=== PATIENT | female | born 1990 | race Caucasian/White ===

== ENCOUNTER → 2019-11-15 16:24 | Outpatient (BNVA) | payer MEDICARE, MEDICAID, SELFPAY | PROVIDERS: Family Provider Nurse Practitioner; PCP Nurse Practitioner; Visit Provider Nurse Practitioner | DX: F41.9 Anxiety disorder, unspecified (principal); F32.9 Major depressive disorder, single episode, unspecified | CPT/HCPCS: 80053; 84443 ==

== ENCOUNTER → 2019-12-23 11:33 | Outpatient (BNVA) | payer MEDICAID, SELFPAY | PROVIDERS: Family Provider Nurse Practitioner; PCP Nurse Practitioner; Visit Provider Nurse Practitioner | DX: F41.9 Anxiety disorder, unspecified (principal); F32.9 Major depressive disorder, single episode, unspecified; E87.6 Hypokalemia | CPT/HCPCS: 80048 ==

== ENCOUNTER → 2020-04-10 15:28 | Outpatient (BNVA) | payer MEDICAID, SELFPAY | PROVIDERS: Family Provider Nurse Practitioner; PCP Nurse Practitioner; Visit Provider Nurse Practitioner | DX: F32.9 Major depressive disorder, single episode, unspecified (principal); F41.9 Anxiety disorder, unspecified; E55.9 Vitamin D deficiency, unspecified; J30.1 Allergic rhinitis due to pollen | CPT/HCPCS: 80053; 82306; 82607; 84443; 85025 ==

== ENCOUNTER → 2020-04-13 16:21 | Outpatient (BNVA) | payer MEDICAID, SELFPAY | PROVIDERS: Family Provider Nurse Practitioner; PCP Nurse Practitioner; Visit Provider Family Medicine | DX: R60.9 Edema, unspecified (principal) | CPT/HCPCS: 71046 ==

== ENCOUNTER → 2020-06-28 13:30 | Outpatient (BNVA) | payer MEDICAID, SELFPAY | PROVIDERS: Family Provider Nurse Practitioner; PCP Nurse Practitioner; Visit Provider Nurse Practitioner | DX: M54.5 Low back pain (principal) | CPT/HCPCS: 72100 ==

== ENCOUNTER 2020-07-19 06:00 | Outpatient (RCR) | payer MEDICAID, SELFPAY | END 2020-08-02 23:59 | disposition home or self-care (01) | LOC: TPT 06:00 | PROVIDERS: PCP Nurse Practitioner; Referring Provider Nurse Practitioner; Visit Provider Nurse Practitioner | DX: M54.42 Lumbago with sciatica, left side (principal); G89.29 Other chronic pain | CPT/HCPCS: 97161 ==

== ENCOUNTER → 2020-10-06 10:51 | Outpatient (BNVA) | payer MEDICAID, SELFPAY | PROVIDERS: PCP Nurse Practitioner; Visit Provider Nurse Practitioner | DX: Z20.828 Contact with and (suspected) exposure to other viral communicable diseases (principal) | CPT/HCPCS: 87635 ==

== ENCOUNTER → 2021-08-23 13:29 | Outpatient (BNVA) | payer MEDICAID, SELFPAY | PROVIDERS: PCP Nurse Practitioner; Visit Provider Nurse Practitioner Family | DX: Z11.52 Encounter for screening for COVID-19 (principal); Z20.822 Contact with and (suspected) exposure to COVID-19 | CPT/HCPCS: 87635 ==

== ENCOUNTER → 2021-09-11 16:01 | Outpatient (BNVA) | payer MEDICAID, SELFPAY | PROVIDERS: PCP Nurse Practitioner; Visit Provider Nurse Practitioner | DX: Z11.3 Encounter for screening for infections with a predominantly sexual mode of transmission (principal) | CPT/HCPCS: 81000; 87491; 87591 ==

== ENCOUNTER → 2022-07-18 13:01 | Outpatient (BNVA) | payer MEDICAID, SELFPAY | PROVIDERS: PCP Nurse Practitioner; Visit Provider Nurse Practitioner Family | DX: F41.9 Anxiety disorder, unspecified (principal); F32.9 Major depressive disorder, single episode, unspecified; E55.9 Vitamin D deficiency, unspecified; K21.9 Gastro-esophageal reflux disease without esophagitis; E87.6 Hypokalemia; R53.83 Other fatigue; H60.92 Unspecified otitis externa, left ear; H91.91 Unspecified hearing loss, right ear | CPT/HCPCS: 80053; 80061; 82306; 82607; 82746; 83550; 84443 ==

== ENCOUNTER 2022-08-16 09:44 | Emergency (ER) | payer MEDICAID, SELFPAY ==
[2022-08-16] VITALS (7 sets, daily range): BP systolic 119–150; BP diastolic 69–95; PULSE 75–92; RESP 14–18; TEMP 37.2; O2SAT 98–100; BMI 38.2
--- NOTE | 2022-08-16 10:21 | ED_ITS ---
Documented by User: Trina Owens PA-C 08/16/22 13:41 HPI - Nausea/Vomiting/Diarrhea General: Chief complaint: Nausea/Vomiting/Diarrhea Stated complaint: sent by austin brown Time Seen by Provider: 08/16/22 10:13 Source: patient Mode of arrival: ambulatory Limitations: no limitations History of Present Illness: 31-year-old female presents to the ER today for nausea and vomiting x24 hours. Patient reports has been unable to eat or drink in the last 24 hours and has also had watery diarrhea. Patient went to her PCP who was concerned with dehydration and sent her to the ER. Patient also complains of epigastric and left upper quadrant abdominal pain for the last 48 hours. Patient denies any recent contacts with similar symptoms. Denies any recent travel. Patient reports a fever this morning that was subjective. Patient reports after taking Tylenol she broke out in a diffuse sweat. Review of Systems General: Reports: 10 or more systems reviewed and unremarkable except in HPI and below PFSH ED PFSH: Medical History Allergic rhinitis due to pollen Anxiety and depression Deficiency of potassium Endometriosis Mild intermittent asthma, uncomplicated Surgical History History of cholecystectomy 2014 History of laparoscopy 2012,2010 History of tonsillectomy at age 6 Family History Grandmother Diabetes Hypertension Grandfather Heart disease Hypertension Mother Thyroid condition Social History Smoking and tobacco status: never smoked Second hand smoke exposure: Yes Smoking risk assessment/counseling performed?: No Alcohol intake: unknown Desire information about alcohol rehabilitation?: No Counseling given: No Desire information about substance/drug rehabilitation?: No Counseling given: No Caregiver/support person: No Lives independently: Yes Household members: children Marital status: Single Number of children: 2 service: No Current occupational status: unemployed Pets and animals: Yes History of recent travel: No Current gender identity: Female Female Reproductive History: Date of last menstrual period: 08/22/21 Physical Exam Const: COMMON NORMALS: average body habitus, patient oriented x3, no limitations, healthy appearing and alert HENMT: COMMON NORMALS: normocephalic, atraumatic, external ears normal, TM's normal bilaterally and Normal nasal mucous membranes and turbinates present; oral mucous membranes not moist (dry membranes) HEAD & SCALP: normocephalic and atraumatic NOSE: Normal nasal mucous membranes and turbinates present EXTERNAL EAR: Yes external ears normal TYMPANIC MEMBRANE: TM's normal bilaterally Neck/C-Spine: COMMON NORMALS: full ROM and no lymphadenopathy Resp: COMMON NORMALS: normal respiratory effort, No retractions and clear to auscultation bilaterally AUSCULTATION: clear to auscultation bilaterally Cardio: COMMON NORMALS: regular rate, regular rhythm and No murmurs present (Cardio) RATE: regular rate RHYTHM: regular rhythm GI: COMMON NORMALS: Soft to palpation AUSCULTATION: Yes Hyperactive bowel sounds present PALPATION: Yes Soft to palpation and Yes Tenderness to palpation present (GI) Details: LLQ and LUQ : COMMON NORMALS: Yes no CVA tenderness BLADDER/KIDNEY EXAM: Yes no CVA tenderness Back/Pelvis: COMMON NORMALS: no CVA tenderness Extremity: COMMON NORMALS: normal to inspection and full ROM Neuro: COMMON NORMALS: patient oriented x3 SENSORIUM/ORIENTATION: Yes alert Psych: COMMON NORMALS: mental status grossly normal, Normal thought process present and cooperative THOUGHT PROCESS: Normal thought process present Skin: COMMON NORMALS: no rashes or lesions noted and no wounds GENERAL SKIN EXAM: no rashes or lesions noted Course ED course: Patient presents from her PCPs office for dehydration. Patient has had 24 to 48 hours of vomiting and diarrhea. Denies any sick contacts. We will start with lab work. If there is anything abnormal will do abdominal CT. Patient will also be given a bolus of fluids. Reevaluation(s): Reevaluation #1: Patient was noted to have low potassium. This is expected given her symptoms. We will do potassium and fluids in the ER. Time: 12:00 Vital Signs: Vital signs: Vital Signs Temperature 98.9 F 08/16/22 09:50 Pulse Rate 79 08/16/22 14:58 Respiratory Rate 14 08/16/22 14:58 Blood Pressure 150/82 08/16/22 14:58 Pulse Oximetry 100 08/16/22 14:58 Oxygen Delivery Me thod 08/16/22 09:50 MDM - Nausea/Vomiting/Diarrhea Medical Decision Making Patient had a very minimally elevated white count and also low potassium. This was to be expected given symptoms. Patient was given a liter and a half of fluid in the ER. Patient also given 20 meq of potassium. Patient given Zofran twice for nausea. Patient reports symptoms have improved some. We did go ahead and CT patient given the low potassium and continued nausea/abdominal pain. CT indicates probable colitis. Patient reports she has had this in the past. We will send patient home with Zofran and anti-inflammatories. Recommended patient push fluids. Recommend follow-up with PCP next week. Return to the ER with any new or worsening symptoms. Patient verbalized understanding and was in agreement with the treatment plan. Lab Data : 08/16/22 10:15 08/16/22 10:15 Radiology Impressions Abdomen/Pelvis CT 08/16/22 10:55 IMPRESSION: 1. Moderate near diffuse colitis. No obstruction. No abscess or free air. 2. Normal appendix. 3. No renal obstruction. 4. Prior cholecystectomy. Laboratory Results WBC 10.2 10^3/uL (4.0-10.0) H 08/16/22 10:15 RBC 5.03 10^6/uL (4.1-5.3) 08/16/22 10:15 Hgb 14.6 g/dL (11.5-15.3) 08/16/22 10:15 Hct 42.9 % (37.0-47.0) 08/16/22 10:15 MCV 85.3 fl (81-99) 08/16/22 10:15 MCH 29.0 pg (28.0-34.0) 08/16/22 10:15 MCHC 34.0 g/dL (30.0-36.0) 08/16/22 10:15 RDW 13.0 % (12.1-15.1) 08/16/22 10:15 Plt Count 276 10^3/cmm (130-400) 08/16/22 10:15 MPV 10.5 fL (7.4-10.4) H 08/16/22 10:15 Neut % (Auto) 79.6 % 08/16/22 10:15 Lymph % (Auto) 12.1 % 08/16/22 10:15 [place] % (Auto) 7.2 % 08/16/22 10:15 Eos % (Auto) 0.6 % 08/16/22 10:15 Baso % (Auto) 0.2 % 08/16/22 10:15 Neut # (Auto) 8.11 10^3/uL (1.8-7.7) H 08/16/22 10:15 Lymph # (Auto) 1.2 10^3/uL (0.8-4.8) 08/16/22 10:15 [place] # (Auto) 0.7 10^3/uL (0.2-0.9) 08/16/22 10:15 Eos # (Auto) 0.1 10^3/uL (0.0-0.8) 08/16/22 10:15 Baso # (Auto) 0.0 10^3/uL (0.0-0.1) 08/16/22 10:15 Nucleated RBC % (auto) 0 % 08/16/22 10:15 Nucleated RBCs # 0.0 /100WBC 08/16/22 10:15 Sodium 138 mmol/L (136-145) 08/16/22 10:15 Potassium 2.9 mmol/L (3.5-5.1) L 08/16/22 10:15 Chloride 100 mmol/L (98-107) 08/16/22 10:15 Carbon Dioxide 23 mmol/L (22-29) 08/16/22 10:15 Anion Gap 17.9 (5-19) 08/16/22 10:15 BUN 6 mg/dL (6-20) 08/16/22 10:15 Creatinine 0.7 mg/dL (0.5-0.9) 08/16/22 10:15 GFR Calculation 97.6 mL/min (90-130) 08/16/22 10:15 Glucose 94 mg/dL (65-115) 08/16/22 10:15 Calculated Osmolality 283 mOsm/kg (285-295) L 08/16/22 10:15 Calcium 9.4 mg/dL (8.5-10.5) 08/16/22 10:15 Total Bilirubin 0.5 mg/dL (0.15-1.2) 08/16/22 10:15 AST 10 U/L (0-32) 08/16/22 10:15 ALT 8 U/L (0-33) 08/16/22 10:15 Alkaline Phosphatase 111 U/L (35-105) H 08/16/22 10:15 Total Protein 7.8 g/dL (6.6-8.7) 08/16/22 10:15 Albumin 4.4 g/dL (3.5-5.2) 08/16/22 10:15 Globulin 3.4 g/dL (1.3-4.6) 08/16/22 10:15 Lipase 16 U/L (13-60) 08/16/22 10:15 SARS-CoV-2 Ag (Rapid) negative (Negative) 08/16/22 10:51 Critical Care Time Critical Care Time: Critical Care Time: No Discharge Plan Discharge Patient Disposition: Home Clinical Impression: Colitis, Acute hypokalemia Condition: Stable Prescriptions: New ondansetron HCl 4 mg tablet 4 mg PO Q8H PRN (Reason: nausea and vomiting) 4 Days Qty: 12 0RF No Action Women's Daily Formula 27-0.4 mg tablet 1 tab PO DAILY albuterol sulfate 2.5 mg /3 mL (0.083 %) solution for nebulization 2.5 mg inhalation Q4H PRN (Reason: shortness of breath or wheezing) Qty: 180 6RF cetirizine [Zyrtec] 10 mg tablet 10 mg PO DAILY 90 Days Qty: 90 1RF prochlorperazine 25 mg suppository 25 mg ME BID PRN (Reason: nausea and vomiting) Qty: 12 0RF cholecalciferol (vitamin D3) 50 mcg (2,000 unit) capsule 50 mcg PO DAILY 90 Days Qty: 90 1RF folic acid 1 mg tablet 1 mg PO DAILY 90 Days Qty: 90 1RF Symbicort 160-4.5 mcg/actuation HFA aerosol inhaler 2 puff inhalation Q12H PRN (Reason: Shortness Of Breath Or Wheezing) Discharge Orders: Discharge ED (Routine); Ordered 08/16/22 Ordered By: Trina Owens Discharge Diet: Advance as tolerated Discharge Activity: Resume usual activity Patient Instructions: Opioid Safety, Pain Management Activity Restrictions/Additional Instructions: Use Zofran for nausea. Push fluids. Increase potassium in diet. Take anti-inflammatories such as ibuprofen or naproxen. Follow-up with PCP in 5 to 7 days if no improvement. Return to the ER with any new or worsening symptoms. Coding Level of Care Code ED Clinical Psychologist [facility] Fwd Exam Comprehensive Documented by User: Héctor Clark DO 08/19/22 17:28 HPI - Nausea/Vomiting/Diarrhea General: Chief complaint: Nausea/Vomiting/Diarrhea Stated complaint: sent by , dehydration Time Seen by Provider: 08/16/22 10:13 PFSH ED PFSH: Medical History Allergic rhinitis due to pollen Anxiety and depression Deficiency of potassium Endometriosis Mild intermittent asthma, uncomplicated Surgical History History of cholecystectomy 2014 History of laparoscopy 2012,2010 History of tonsillectomy at age 6 Family History Grandmother Diabetes Hypertension Grandfather Heart disease Hypertension Mother Thyroid condition Social History Smoking and tobacco status: never smoked Second hand smoke exposure: Yes Smoking risk assessment/counseling performed?: No Alcohol intake: unknown Desire information about alcohol rehabilitation?: No Counseling given: No Desire information about substance/drug rehabilitation?: No Counseling given: No Caregiver/support person: No Lives independently: Yes Household members: children Marital status: Single Number of children: 2 service: No Current occupational status: unemployed Pets and animals: Yes History of recent travel: No Current gender identity: Female Course Vital Signs: Vital signs: Vital Signs Temperature 98.9 F 08/16/22 09:50 Pulse Rate 79 08/16/22 14:58 Respiratory Rate 14 08/16/22 14:58 Blood Pressure 150/82 08/16/22 14:58 Pulse Oximetry 100 08/16/22 14:58 Oxygen Delivery Me thod 08/16/22 09:50 MDM - Nausea/Vomiting/Diarrhea Medical Decision Making Patient had a very minimally elevated white count and also low potassium. This was to be expected given symptoms. Patient was given a liter and a half of fluid in the ER. Patient also given 20 meq of potassium. Patient given Zofran twice for nausea. Patient reports symptoms have improved some. We did go ahead and CT patient given the low potassium and continued nausea/abdominal pain. CT indicates probable colitis. Patient reports she has had this in the past. We will send patient home with Zofran and anti-inflammatories. Recommended patient push fluids. Recommend follow-up with PCP next week. Return to the ER with any new or worsening symptoms. Patient verbalized understanding and was in agreement with the treatment plan. Chart reviewed and patient discussed with midlevel. Agree with assessment and plan. Lab Data : 08/16/22 10:15 08/16/22 10:15 Radiology Impressions Abdomen/Pelvis CT 08/16/22 10:55 IMPRESSION: 1. Moderate near diffuse colitis. No obstruction. No abscess or free air. 2. Normal appendix. 3. No renal obstruction. 4. Prior cholecystectomy. Laboratory Results WBC 10.2 10^3/uL (4.0-10.0) H 08/16/22 10:15 RBC 5.03 10^6/uL (4.1-5.3) 08/16/22 10:15 Hgb 14.6 g/dL (11.5-15.3) 08/16/22 10:15 Hct 42.9 % (37.0-47.0) 08/16/22 10:15 MCV 85.3 fl (81-99) 08/16/22 10:15 MCH 29.0 pg (28.0-34.0) 08/16/22 10:15 MCHC 34.0 g/dL (30.0-36.0) 08/16/22 10:15 RDW 13.0 % (12.1-15.1) 08/16/22 10:15 Plt Count 276 10^3/cmm (130-400) 08/16/22 10:15 MPV 10.5 fL (7.4-10.4) H 08/16/22 10:15 Neut % (Auto) 79.6 % 08/16/22 10:15 Lymph % (Auto) 12.1 % 08/16/22 10:15 [place] % (Auto) 7.2 % 08/16/22 10:15 Eos % (Auto) 0.6 % 08/16/22 10:15 Baso % (Auto) 0.2 % 08/16/22 10:15 Neut # (Auto) 8.11 10^3/uL (1.8-7.7) H 08/16/22 10:15 Lymph # (Auto) 1.2 10^3/uL (0.8-4.8) 08/16/22 10:15 [place] # (Auto) 0.7 10^3/uL (0.2-0.9) 08/16/22 10:15 Eos # (Auto) 0.1 10^3/uL (0.0-0.8) 08/16/22 10:15 Baso # (Auto) 0.0 10^3/uL (0.0-0.1) 08/16/22 10:15 Nucleated RBC % (auto) 0 % 08/16/22 10:15 Nucleated RBCs # 0.0 /100WBC 08/16/22 10:15 Sodium 138 mmol/L (136-145) 08/16/22 10:15 Potassium 2.9 mmol/L (3.5-5.1) L 08/16/22 10:15 Chloride 100 mmol/L (98-107) 08/16/22 10:15 Carbon Dioxide 23 mmol/L (22-29) 08/16/22 10:15 Anion Gap 17.9 (5-19) 08/16/22 10:15 BUN 6 mg/dL (6-20) 08/16/22 10:15 Creatinine 0.7 mg/dL (0.5-0.9) 08/16/22 10:15 GFR Calculation 97.6 mL/min (90-130) 08/16/22 10:15 Glucose 94 mg/dL (65-115) 08/16/22 10:15 Calculated Osmolality 283 mOsm/kg (285-295) L 08/16/22 10:15 Calcium 9.4 mg/dL (8.5-10.5) 08/16/22 10:15 Total Bilirubin 0.5 mg/dL (0.15-1.2) 08/16/22 10:15 AST 10 U/L (0-32) 08/16/22 10:15 ALT 8 U/L (0-33) 08/16/22 10:15 Alkaline Phosphatase 111 U/L (35-105) H 08/16/22 10:15 Total Protein 7.8 g/dL (6.6-8.7) 08/16/22 10:15 Albumin 4.4 g/dL (3.5-5.2) 08/16/22 10:15 Globulin 3.4 g/dL (1.3-4.6) 08/16/22 10:15 Lipase 16 U/L (13-60) 08/16/22 10:15 SARS-CoV-2 Ag (Rapid) negative (Negative) 08/16/22 10:51 Discharge Plan Discharge Patient Disposition: Home Clinical Impression: Colitis, Acute hypokalemia Condition: Stable Prescriptions: New ondansetron HCl 4 mg tablet 4 mg PO Q8H PRN (Reason: nausea and vomiting) 4 Days Qty: 12 0RF No Action Women's Daily Formula 27-0.4 mg tablet 1 tab PO DAILY albuterol sulfate 2.5 mg /3 mL (0.083 %) solution for nebulization 2.5 mg inhalation Q4H PRN (Reason: shortness of breath or wheezing) Qty: 180 6RF cetirizine [Zyrtec] 10 mg tablet 10 mg PO DAILY 90 Days Qty: 90 1RF prochlorperazine 25 mg suppository 25 mg ME BID PRN (Reason: nausea and vomiting) Qty: 12 0RF cholecalciferol (vitamin D3) 50 mcg (2,000 unit) capsule 50 mcg PO DAILY 90 Days Qty: 90 1RF folic acid 1 mg tablet 1 mg PO DAILY 90 Days Qty: 90 1RF Symbicort 160-4.5 mcg/actuation HFA aerosol inhaler 2 puff inhalation Q12H PRN (Reason: Shortness Of Breath Or Wheezing) Discharge Orders: Discharge ED (Routine); Ordered 08/16/22 Ordered By: Trina Owens Discharge Diet: Advance as tolerated Discharge Activity: Resume usual activity Patient Instructions: Opioid Safety, Pain Management Activity Restrictions/Additional Instructions: Use Zofran for nausea. Push fluids. Increase potassium in diet. Take anti- inflammatories such as ibuprofen or naproxen. Follow-up with PCP in 5 to 7 days if no improvement. Return to the ER with any new or worsening symptoms. Coding Level of Care Code ED Clinical Psychologist [facility] Fwd Exam Comprehensive
[2022-08-16] MEDS: sodium chloride 0.9% 500 ML IV ×2 (10:25→13:21)
[2022-08-16 10:31] LABS: Basophils % 0.2 %; Eosinophils # 0.1 10^3/uL (0.0-0.8); Eosinophils % 0.6 %; Hematocrit 42.9 % (37.0-47.0); Hemoglobin 14.6 g/dL (11.5-15.3); Lymphocytes # 1.2 10^3/uL (0.8-4.8); Lymphocytes % 12.1 %; Mean Corpuscular Volume 85.3 fl (81-99); Mean Platelet Volume 10.5 fL (7.4-10.4); Monocytes # 0.7 10^3/uL (0.2-0.9); Monocytes % 7.2 %; Neutrophils # 8.11 10^3/uL (1.8-7.7); Neutrophils % 79.6 %; Nucleated Red Blood Cells % 0 %; Platelet Count 276 10^3/cmm (130-400); Red Blood Count 5.03 10^6/uL (4.1-5.3); White Blood Count 10.2 10^3/uL (4.0-10.0)
[2022-08-16 10:48] LABS: Alanine Aminotransferase 8 U/L (0-33); Albumin Level 4.4 g/dL (3.5-5.2); Alkaline Phosphatase 111 U/L (35-105); Anion Gap 17.9 (5-19); Aspartate Amino Transferase 10 U/L (0-32); Blood Urea Nitrogen 6 mg/dL (6-20); Calcium 9.4 mg/dL (8.5-10.5); Carbon Dioxide 23 mmol/L (22-29); Chloride 100 mmol/L (98-107); Globulin 3.4 g/dL (1.3-4.6); Glomerular Filtration Rate 97.6 mL/min (90-130); Glucose 94 mg/dL (65-115); Lipase 16 U/L (13-60); Osmolality Calculated 283 mOsm/kg (285-295); Sodium 138 mmol/L (136-145); Total Bilirubin 0.5 mg/dL (0.15-1.2); Total Protein 7.8 g/dL (6.6-8.7)
[2022-08-16] MEDS: ondansetron 2 mg/ML SDV 2 mL 4 MG IVP ×2 (10:49→13:58)
[2022-08-16 10:51] LABS: Potassium 2.9 mmol/L (3.5-5.1)
--- NOTE | 2022-08-16 10:55 | CT_ITS ---
WS: [id number] CT ABDOMEN AND PELVIS WITH CONTRAST HISTORY: abd pain, N/V, low potassium TECHNIQUE: Imaging performed of the abdomen and pelvis with IV contrast. Single phase imaging of the abdomen. Coronal and sagittal reformats are submitted. All CT scans at [facility] use at [address] one of these dose optimization techniques: automated exposure control; mA and/or kV adjustment per patient size (includes targeted exams where dose is matched to clinical indication); or iterative re construction. IV CONTRAST: Omnipaque 350; 100 mL IV. Oral contrast: No DLP: 1017.43 mGy.cm COMPARISON: 11/29/2006 Lower thorax: Linear bandlike atelectasis at the RIGHT lung base. Heart is normal size. No hiatal her padmini. Liver/biliary system: Normal size with no intrahepatic dilatation. Normal portal vein. Gallbladder: Status post cholecystectomy. Pancreas: Normal size pancreas and pancreatic duct. No adjacent inflammation. Spleen: Normal size spleen. No mass or infarct. Adrenal glands: Normal. Right kidney: Normal. Left kidney: Normal. Aorta: Normal. Lymphadenopathy: None. Free fluid: None. GI tract: Minimally distended stomach. Normal duodenal C-loop. No small bowel obstruction or wall thi ckening. Beginning in the cecum and extending throughout the colon to the sigmoid there is mild diffu se submucosal edema with mild inflammatory changes surrounding the mucosa. No obstruction. Distal col on is spared. Normal appendix. Abdominal wall: Unremarkable abdominal wall. No hernia. Pelvis: No free fluid or adenopathy. Uterus is normal size. Both ovaries are identified. Bones: Unrem arkable. CT/CT abdomen pelvis w con* [id number] IMPRESSION: 1. Moderate near diffuse colitis. No obstruction. No abscess or free air. 2. Normal appendix. 3. No renal obstruction. 4. Prior cholecystectomy.
[2022-08-16] MEDS: sodium chloride 0.9% 500 ML 250 ML IV (11:16)
[2022-08-16] MEDS: potassium chloride premix 100 ML 50 MEQ IV (11:16)
[2022-08-16] MEDS: iohexol 350 mg/mL 100 mL Btl IV (11:33)
[2022-08-16 11:46] LABS: SARS Covid-2 Antigen negative (Negative)
[2022-08-16] MEDS: ketorolac 30 mg/mL INJ 15 MG IVP (13:54)
== END 2022-08-16 15:00 | disposition home or self-care (01) ==
PROVIDERS: Emergency Medicine; Emergency Provider Physician Assistant
DX: K52.9 Noninfective gastroenteritis and colitis, unspecified (principal); E87.6 Hypokalemia; Z20.822 Contact with and (suspected) exposure to COVID-19; Z77.22 Contact with and (suspected) exposure to environmental tobacco smoke (acute) (chronic)
CPT/HCPCS: 74177; 80053; 83690; 85025; 87426; 96365; 96366; 96375; 96376; 99285; J1885; J2405; J3480; J7040; Q9967

== ENCOUNTER 2022-10-30 06:55 | Outpatient (CLI) | payer MEDICARE, MEDICAID, SELFPAY ==
--- NOTE | 2022-10-30 | MR_ITS ---
WS: [id number] MRI HEAD WITH CONTRAST WITH ATTENTION TO THE INTERNAL AUDITORY CANALS TECHNIQUE: Sagittal T1, T2 axial, T2 axial flair, axial susceptibility weighted imaging, axial diffus ion weighted images, and coronal T2 images were obtained. Pre and post T1 axial and post T1 coronal i mages. ADC and FSPGR images. Post gadolinium images with attention to the internal auditory canals. A xial fiesta imaging. CLINICAL INFORMATION: RT HEARING LOSS COMPARISON: None. FINDINGS: No evidence of restricted diffusion to suggest acute ischemia. Ventricular system and basal cisterns are patent. Normal posterior fossa. Normal vascular flow voids at the skull base. No extra axial flui d collections. No evidence of mass or mass effect. Polypoid mucosal thickening in the paranasal sinus es. This is worse in the RIGHT maxillary sinus. Normal posterior nasopharynx. Prominent adenoid tissu e with a few retention cysts normal for a patient this age. Normal parapharyngeal fat. Opacification RIGHT mastoid air cells with mucosal thickening RIGHT middle ear. Proximal 7th and 8th cranial nerves are normal in appearance. Normal trigeminal nerve root entry zones. No evidence of enh ancing IAC or CP angle mass. No suspicious intracanal signal abnormalities. Normal baldwin-white differentiation. No abnormal intracr anial enhancement. No hemosiderin on the susceptibly weighted images. Normal optic chiasm and pituita ry infundibulum. Normal cavernous sinuses and Meckel's cave. A few prominent lymph nodes in the upper cervical chains likely reactive in a patient this age. No abnormal intracranial enhancement. Normal visualized dural venous sinuses. Normal sella. Incidenta l slightly low-lying cerebellar tonsils. Normal 4th ventricle and upper cervical spinal canal. MR/MR iac's wo/w con* [id number] IMPRESSION: 1. Partial opacification RIGHT mastoid air cells and RIGHT middle ear. LEFT ma stoid air cells are well aerated. Normal posterior nasopharynx. RIGHT IAC could be further evaluated with temporal bone CT to assess for any bony erosion 2. No evidence of enhancing IAC or CP angle mass. Normal trigeminal nerve root entry zones. 3. Mild inflammatory changes in the paranasal sinuses with polypoid mucosal th ickening and retention cyst.. 4. No suspicious intracranial signal abnormalities. 5. No abnormal intracranial enhancement. 6. Prominent adenoid tissue with cystic change likely reactive and normal for a patient this age.
[2022-10-30] MEDS: gadobenate dimeglumine 20 mL vial IV (07:44)
== END 2022-10-30 06:56 | disposition home or self-care (01) ==
LOC: RAD 06:56
PROVIDERS: PCP Nurse Practitioner Family; Visit Provider Otolaryngology
DX: H90.71 Mixed conductive and sensorineural hearing loss, unilateral, right ear, with unrestricted hearing on the contralateral side (principal)
CPT/HCPCS: 70553; A9577

== ENCOUNTER 2022-11-12 10:47 | Outpatient (CLI) | payer MEDICARE, MEDICAID, SELFPAY ==
--- NOTE | 2022-11-12 10:59 | MM_ITS ---
WS: [id number] DIAGNOSTIC BILATERAL DIGITAL BREAST TOMOSYNTHESIS MAMMOGRAPHY WITH CAD Bilateral breast ultrasound. HISTORY: breast pain bilateral COMPARISON: None available. TECHNIQUE: Bilateral craniocaudad, mediolateral oblique, and mediolateral views are submitted with to mosynthesis and SM. Spot compression RIGHT and LEFT CC. Computer aided detection utilized. Breast composition: There are scattered areas of fibroglandular density. No suspicious masses or dist ortion identified. Markers are placed along the lateral aspect of each breast inferiorly along the ar ea of pain. No underlying abnormality. Bilateral breast ultrasound, limited. Bilateral breast ultrasound is directed to the areas of pain as indicated by the patient. No masses a re identified. A very small cyst in the LEFT breast at 5:00, 1 cm from the nipple. Cyst measures 3 x 3.2 mm. MM/[place] [id number] IMPRESSION: BI-RADS: 2-Benign FOLLOW UP: Age 40
== END 2022-11-12 10:48 | disposition home or self-care (01) ==
PROVIDERS: PCP Nurse Practitioner Family; Visit Provider Nurse Practitioner Family
DX: N64.4 Mastodynia (principal)
CPT/HCPCS: 76642; 77062; G0279

== ENCOUNTER 2023-02-21 19:05 | Emergency (ER) | payer MEDICARE, MEDICAID, SELFPAY ==
[2023-02-21 19:35] VITALS: BP 123/81; PULSE 88; RESP 14; TEMP 36.8; O2SAT 98
--- NOTE | 2023-02-21 19:51 | XRR_ITS ---
PROCEDURE INFORMATION: Exam: XR Right Foot Exam date and time: 02/21/2023 8:26 PM Age: 32 years old Clinical indication: Pain; Foot; Right; Additional info: Crush, dropped wooden board on it today TECHNIQUE: Imaging protocol: Radiologic exam of the right foot. Views: 3 or more views. COMPARISON: No relevant prior studies available. FINDINGS: Bones/joints: Normal. Soft tissues: Normal. XR/XR foot RT min 3V* [id number] IMPRESSION: No acute findings.
[2023-02-21 21:56] VITALS: BP 122/65; PULSE 81; RESP 18; O2SAT 98
--- NOTE | 2023-02-22 03:48 | W.ED.EXTPRO ---
HPI - Extremity Problem General: Chief complaint: Extremity Injury, Lower Stated complaint: Rt Foot Injury Time Seen by Provider: 02/21/23 19:49 Source: patient and family Mode of arrival: wheelchair Limitations: no limitations History of Present Illness: Patient presents to the emergency department today accompanied by her sister for evaluation treatment of injury sustained to her right foot. Patient states that she and her sister were out back working on a deck when a piece of lumber slipped and impacted the top of the patient's foot. She states that it impacted the top of her foot and rolled to the lateral side of her foot. She states since that time she has had pain with ambulation and weightbearing. She states bruising and swelling has developed. She reports feeling numb on her foot and is tender to the top of her foot and the lateral portion. Review of Systems General: Reports: 10 or more systems reviewed and unremarkable except in HPI and below PFSH ED PFSH: Medical History Allergic rhinitis due to pollen Anxiety and depression Deficiency of potassium Endometriosis Mild intermittent asthma, uncomplicated Surgical History History of cholecystectomy 2014 History of laparoscopy 2012,2010 History of tonsillectomy at age 6 Family History Grandmother Diabetes Hypertension Grandfather Heart disease Hypertension Mother Thyroid condition Social History Smoking and tobacco status: never smoked Second hand smoke exposure: Yes Smoking risk assessment/counseling performed?: No Alcohol intake: unknown Desire information about alcohol rehabilitation?: No Counseling given: No Substance/Drug Use: unknown Desire information about substance/drug rehabilitation?: No Counseling given: No Caregiver/support person: No Lives independently: Yes Household members: children Marital status: Single Number of children: 2 service: No Current occupational status: unemployed Pets and animals: Yes Do you think of yourself as: Straight/Heterosexual Current gender identity: Female Physical Exam Const: COMMON NORMALS: no acute distress, patient oriented x3 and alert HENMT: COMMON NORMALS: normocephalic, atraumatic and hearing grossly normal bilaterally HEAD & SCALP: normocephalic and atraumatic Eye: COMMON NORMALS: Equal, round and reactive pupils present, EOMs intact bilaterally and conjunctivae normal CONJUNCTIVA: Yes conjunctivae normal PUPIL: Yes Equal, round and reactive pupils present Neck/C-Spine: COMMON NORMALS: full ROM and no JVD Lymph: LYMPHATIC: no lymphadenopathy noted Resp: COMMON NORMALS: normal respiratory effort, No retractions and No use of accessory muscles Cardio: COMMON NORMALS: no JVD and regular rate RATE: regular rate Extremity: NARRATIVE EXTREMITY EXAM: Patient has mild to moderate swelling to the top of her right foot with bruising noted to the mid, central portion of the top of her foot as well as some bruising noted to the mid lateral portion of the foot. Patient is generally tender but does experience some point tenderness to the mid top foot and the right lateral foot. No specific proximal fifth metatarsal tenderness or distal fibula tenderness. Patient is able to wiggle her toes. Neuro: COMMON NORMALS: patient oriented x3 SENSORIUM/ORIENTATION: Yes alert Psych: COMMON NORMALS: mental status grossly normal, Normal thought process present, cooperative and normal affect THOUGHT PROCESS: Normal thought process present Skin: COMMON NORMALS: no rashes or lesions noted and turgor normal GENERAL SKIN EXAM: no rashes or lesions noted and turgor normal Course Vital Signs: Vital signs: Vital Signs Temperature 98.2 F 02/21/23 19:35 Pulse Rate 81 02/21/23 21:56 Respiratory Rate 18 02/21/23 21:56 Blood Pressure 122/65 02/21/23 21:56 Pulse Oximetry 98 02/21/23 21:56 Oxygen Delivery Me thod Room Air 02/21/23 19:35 MDM - Extremity (Nontraumatic) Medical Decision Making Patient presented to the emergency department today for evaluation treatment of a crushing injury to the right foot from a large piece of wood. Patient does have swelling and bruising noted to the top and lateral portion of her foot. Final x-ray interpretation had not been read at the time of the patient's evaluation however, given the location of her bruising and tenderness, there was an irregularity that appeared on the oblique and the lateral films off the cuboid which were of concern as a potential for acute injury. Since we did not have a final read on the x-ray at that time, we proceeded on with suspicion for bony injury and patient was put into a posterior splint and given crutches. She was also referred to orthopedics for follow-up. Went over the importance of keeping her foot up and elevated as often as possible. She can use Tylenol and ibuprofen for discomfort. Patient verbalized understanding and agreement to treatment plan. Lab Data Radiology Impressions Foot X-Ray 02/21/23 19:51 IMPRESSION: No acute findings. Discharge Plan Discharge Patient Disposition: Home Clinical Impression: Crushing injury of right foot Condition: Stable Prescriptions: No Action Women's Daily Formula 27-0.4 mg tablet 1 tab PO DAILY albuterol sulfate 2.5 mg /3 mL (0.083 %) solution for nebulization 2.5 mg inhalation Q4H PRN (Reason: shortness of breath or wheezing) Qty: 180 6RF levocetirizine [Xyzal] 5 mg tablet 5 mg PO DAILY Qty: 90 1RF promethazine-DM 6.25-15 mg/5 mL syrup 5 - 10 ml PO Q6H PRN (Reason: cough) Qty: 200 1RF cholecalciferol (vitamin D3) 50 mcg (2,000 unit) capsule 50 mcg PO DAILY 90 Days Qty: 90 1RF folic acid 1 mg tablet 1 mg PO DAILY 90 Days Qty: 90 1RF Symbicort 160-4.5 mcg/actuation HFA aerosol inhaler 2 puff inhalation Q12H PRN (Reason: Shortness Of Breath Or Wheezing) Discharge Orders: Discharge ED (Routine); Ordered 02/21/23 Ordered By: Brit Carey Referrals: Deena Morin NP [Primary Care Provider] - Discharge Diet: Usual diet Discharge Activity: Limit activity as instructed Patient Instructions: Foot Fracture in Adults (ED), Foot Contusion (ED) Activity Restrictions/Additional Instructions: Final x-ray interpretation is still pending by the radiologist however, based on your injury, location of your discomfort, and concerns on the initial x-ray read, it is possible that you do have a small chip fracture off of your cuboid bone. As best practice, we will immobilize your foot and ankle and keep you nonweightbearing with follow-up through orthopedics/podiatry for a second opinion. Try and keep your foot up and elevated is much as possible. Use Tylenol and ibuprofen to help with any discomfort. Orthopedic should be able to reevaluate you and if necessary, continue immobilization until healing is completed otherwise, may release you back to minimal or full weightbearing to complete the healing process. Coding Level of Care Code ED Manager Compensation for Shital Schwartz
--- NOTE | 2023-02-24 09:39 | DCPLANNER ---
Addendum entered by Lizzette Penny 02/27/23 09:06: Patient had a follow up appointment scheduled with ortho - patient did attend appointment. Addendum entered by Lizzette Penny 02/24/23 15:06: Patient has a follow up appointment scheduled for Saturday, February 25, [address]23 at 11:[address] Juarez at ortho. Original Note: occupational health manager had message to schedule a follow up appointment for patient with ortho. occupational health manager sent patients information to the front office staff at ortho. Patients information will be printed and reviewed. Clinic will call patient with appointment information.
== END 2023-02-21 21:57 | disposition home or self-care (01) ==
PROVIDERS: Emergency Provider Physician Assistant; PCP Nurse Practitioner Family
DX: S97.81XA Crushing injury of right foot, initial encounter (principal); Z77.22 Contact with and (suspected) exposure to environmental tobacco smoke (acute) (chronic); W20.8XXA Other cause of strike by thrown, projected or falling object, initial encounter
CPT/HCPCS: 29515; 73630; 99283; E0114

== ENCOUNTER → 2023-02-25 10:55 | Outpatient (BNVA) | payer MEDICARE, MEDICAID, SELFPAY | PROVIDERS: PCP Nurse Practitioner Family; Referring Provider Physician Assistant; Visit Provider Orthopaedic Surgery | DX: S90.31XA Contusion of right foot, initial encounter (principal); W20.8XXA Other cause of strike by thrown, projected or falling object, initial encounter | CPT/HCPCS: 99202 ==

== ENCOUNTER → 2023-04-30 16:53 | Outpatient (BNVA) | payer MEDICARE, MEDICAID, SELFPAY | PROVIDERS: PCP Nurse Practitioner Family; Visit Provider Nurse Practitioner Family | DX: N39.0 Urinary tract infection, site not specified (principal); F41.9 Anxiety disorder, unspecified; F32.9 Major depressive disorder, single episode, unspecified; R53.83 Other fatigue; E53.8 Deficiency of other specified B group vitamins; K29.70 Gastritis, unspecified, without bleeding; E55.9 Vitamin D deficiency, unspecified | CPT/HCPCS: 80053; 82306; 82607; 82746; 83550; 84443 ==

== ENCOUNTER → 2023-07-29 16:18 | Outpatient (BNVA) | payer MEDICARE, MEDICAID, SELFPAY | PROVIDERS: PCP Nurse Practitioner Family; Visit Provider Nurse Practitioner Family | DX: F41.9 Anxiety disorder, unspecified (principal); F32.9 Major depressive disorder, single episode, unspecified; E66.9 Obesity, unspecified; Z68.39 Body mass index [BMI] 39.0-39.9, adult | CPT/HCPCS: 80053 ==

== ENCOUNTER → 2024-01-27 11:25 | Outpatient (BNVA) | payer MEDICARE, MEDICAID, SELFPAY | PROVIDERS: PCP Nurse Practitioner Family; Visit Provider Nurse Practitioner Family | DX: R53.83 Other fatigue (principal); Z72.51 High risk heterosexual behavior; F41.9 Anxiety disorder, unspecified; F32.9 Major depressive disorder, single episode, unspecified; J32.9 Chronic sinusitis, unspecified | CPT/HCPCS: 80053; 84443; 85025; 87806 ==

== ENCOUNTER → 2024-12-07 16:22 | Outpatient (BNVA) | payer MEDICAID, SELFPAY | PROVIDERS: Family Provider Nurse Practitioner; Visit Provider Nurse Practitioner | DX: E55.9 Vitamin D deficiency, unspecified (principal) | CPT/HCPCS: 80053; 82306 ==